=== PATIENT | male | born 1960 | race Caucasian/White ===

== ENCOUNTER 2022-09-22 06:27 | Day surgery (SDC) | payer OTHER ==
[2022-09-22 06:52] VITALS: RESP 16
[2022-09-22] MEDS ORDERED: LIDOCAINE 1% (10MG/ML) FOR IV START INTRADERMA PRN (06:56)
[2022-09-22] MEDS ORDERED: LACTATED RINGERS 1,000 ML IV SCH (06:56)
[2022-09-22 07:21] LABS: Glucose,Whole Blood 155 mg/dL (70-110)
[2022-09-22 07:22] LABS: African American GFR (CKD) >90 (>60 ml/min/1.73 sqM); Anion Gap 6 mmol/L; Blood Urea Nitrogen 19 mg/dL (9-20); Calcium 8.5 mg/dL (8.4-10.2); Carbon Dioxide 23 mmol/L (22-30); Chloride 107 mmol/L (98-107); Glucose 166 mg/dL (74-99); Non-African American GFR(CKD) >90 (>60 ml/min/1.73 sqM); Sodium 136 mmol/L (137-145)
[2022-09-22] MEDS ORDERED: PROPOFOL 10 MG/ML 20 ML VIAL IV ONE (07:30)
[2022-09-22] MEDS ORDERED: LIDOCAINE 2% INJ 20 MG/ML (2 ML VIAL) ONE (07:30)
--- NOTE | 2022-09-22 07:50 | P.PCN ---
Date of Procedure: 09/22/22 Operative Findings: Cardioversion Report Performing physician Choco Arias M.D. Procedure performed Successful cardioversion of atrial fibrillation to normal sinus mechanism using 200 J at first attempt Indication Symptomatic atrial fibrillation Complication None Level of sedation The procedure was performed under deep sedation using propofol with SENIOR PARALEGAL in the room Procedure description After obtaining an informed consent the patient was brought to the recovery room. Sedation was introduced using propofol with SENIOR PARALEGAL in the room. Subsequently the patient cardioverted from atrial fibrillation to normal sinus mechanism using 200 J and first attempt Conclusion Successful cardioversion of atrial fibrillation to normal sinus mechanism using 200 J Postprocedure management Continue the current medical regimen Continue oral anticoagulation Follow-up with the patient
--- NOTE | 2022-09-22 07:51 | P.PCN ---
Date of Procedure: 09/22/22 Operative Findings: TRANSESOPHAGEAL ECHOCARDIOGRAM DATABASE ADMINISTRATION PROJECT MANAGER: MASSIEL KOHLI MD, RPVI INDICATION: Rule out intracardiac thrombus SEDATION: Conscious sedation COMPLICATION: None LEVEL OF SEDATION The procedure was performed under general anesthesia PROCEDURE DESCRIPTION: After obtaining an informed consent, the patient was brought to transesophageal echocardiogram room. Pulse oximetry and heart monitors were attached to the patient. The patient throat was sprayed using lidocaine. The patient was turned into left lateral position. After that a bite guard was placed. After an appropriate conscious sedation was initiated, the transesophageal echocardiogram was advanced through a bite guard into the mid esophagus. A 2-D echocardiogram images, color Doppler images, continuous wave images, pulse-wave images, of various cardiac structure were performed. After that the transesophageal echocardiogram probe was advanced into the stomach and fixed to obtain transgastric view was. The probe was brought into the mid esophagus. Inter-atrial septum was interrogated using 2D images, color Doppler images, and then contrast study. After that transesophageal echocardiogram was withdrawn out and upon withdrawing the descending thoracic aorta all the way up to the arch was evaluated. FINDING: The LV appears to be mildly impaired in terms of systolic function with EF around 45%. The right ventricle appeared to be mildly dilated. The left atrial appendage appears to be free from any thrombus. The aortic valve is trileaflet valve with no stenosis with mild insufficiency. The mitral valve appeared to be mildly thickened with [id number] mitral regurgitation. Nsgq-lk-[id number] tricuspid regurgitation was seen and no evidence of pericardial effusion CONCLUSION: 1. Mildly impaired LV function with EF around 45% 2. Kmwb-ml-zqyiqaja mitral regurgitation 3. Mild aortic insufficiency 4. No evidence of intracardiac thrombus 5. No evidence of pericardial effusion
[2022-09-22 07:58] VITALS: TEMP 97
[2022-09-22 09:17] VITALS: BP 124/72; PULSE 64
== END 2022-09-22 09:25 | disposition home or self-care (01) ==
LOC: OR 06:27
PROVIDERS: ATTEND Internal Medicine Interventional Cardiology
DX: I48.0 Paroxysmal atrial fibrillation (principal); I34.0 Nonrheumatic mitral (valve) insufficiency; I10 Essential (primary) hypertension; E78.5 Hyperlipidemia, unspecified; E11.9 Type 2 diabetes mellitus without complications; G47.33 Obstructive sleep apnea (adult) (pediatric); Z82.49 Family history of ischemic heart disease and other diseases of the circulatory system; Z79.01 Long term (current) use of anticoagulants; Z79.899 Other long term (current) drug therapy
CPT/HCPCS: 93312; 93320; 93325; 92960; 80048; J2704; J2001